=== PATIENT | female | born 1985 | race Caucasian/White ===

== ENCOUNTER 2024-07-01 18:15 | Emergency (ER) | payer OTHER, SELFPAY ==
[2024-07-01 18:16] VITALS: BP 132/67
--- NOTE | 2024-07-01 18:40 | ED.GENMED ---
History of Present Illness
General
Chief Complaint: Flank Pain
Time Seen by Provider: 07/01/24 18:35
History of Present Illness
History of Present Illness:
TIME OF INITIAL ENCOUNTER: 6:40 PM
HPI: Patient presents with 1.5 to 2 weeks of left flank pain/abdominal pain. This was not abrupt in onset. It was gradual in progression. She had dysuria about a week and a half ago and tried Bactrim but this only made her feel better for about a
day. She has an ongoing sensation of discomfort in the left side of the abdomen. She reports history of intussusception about 10 years ago as well.
EXAM:
GENERAL: Well appearing in no distress
HEENT: Moist oral mucosa
CARDIOVASCULAR: No murmurs, normal heart rate, regular rhythm, No chest wall tenderness
PULMONARY: No respiratory distress, breath sounds are clear and equal
ABDOMEN: Soft with no peritoneal signs, no tenderness, elevated BMI
NEUROLOGIC: Excellent strength all extremities, no coordination deficits
PSYCHIATRIC: Appropriate mental status, normal insight and judgement
EXTREMITIES: Nontender, no edema, moves all extremities equally
SKIN: No rash, no lesions
NUMBER AND COMPLEXITY OF PROBLEMS ADDRESSED AT THE ENCOUNTER
� Chronic conditions affecting care: Has had intussusception, colitis
� Acute Exacerbation and/or Progression of Chronic Illness:
� Differential Diagnosis includes: Ureteral stone/colic, UTI, pyelonephritis, intussusception, diverticulitis
AMOUNT AND/OR COMPLEXITY OF DATA TO BE REVIEWED AND ANALYZED
� I performed an independent evaluation of and my interpretation is:
EKG:
CT: CT personally reviewed�no significant acute abnormality
X-rays:
Laboratory Studies: Hemoglobin chronically low, white count normal 7.5, chemistries unremarkable, urinalysis shows no sign of infection, hCG negative
Other:
� Review of other/old records: No old records available for review [facility]
� Clinical information was obtained by an independent historian: I spoke to the father at bedside
� Prescriptions/Medications Considered but not given:
� Further testing considered but not performed:
RISK OF COMPLICATIONS AND/OR MORBIDITY OR MORTALITY OF PATIENT MANAGEMENT
� Social determinants of health affecting care: Lives at home
� Discussion with other providers:
� Escalation of care including admission/observation vs risk of discharge considered: The patient has about 2 weeks of left flank/abdomen pain not improved with Bactrim and no longer has dysuria. Will obtain CT imaging as well.
ANY OTHER UPDATES:
8 PM: Ongoing pain despite Toradol�will give low-dose narcotic analgesia.
8:40 PM: After Dilaudid was given, pain still persists and recurred after briefly helping. However she appears rather comfortable at time of discharge. We talked about the possibly of a abdominal muscle etiology and she wishes to try
cyclobenzaprine.
Phy Exam
Physical Exam
Physical Exam:
See HPI
Course
Orders/Labs/Results
Orders:
Orders
07/01/24 18:47
Ketorolac [Toradol] 15 mg IV NOW STA
07/01/24 18:48
Test Result ONCE
07/01/24 18:52
CT Abd/pel Without Iv Or Oral Urgent
Comment:
Reason For Exam: L flank / abd pain
07/01/24 19:07
Basic Metabolic Panel Urgent
Complete Blood Count/With Diff Urgent
HCG, Urine Qualitative Screen Urgent
Date Specimen was Collected: 07/01/24
Time Specimen was Collected: 19:06
Urinalysis Reflex To Culture Urgent
Date Specimen was Collected: 07/01/24
Time Specimen was Collected: 19:06
07/01/24 19:57
HYDROmorphone [Dilaudid] 0.5 mg IV NOW STA
Ondansetron Injectable [Zofran] 4 mg IV NOW STA
Abnormal Lab Results
07/01/24
19:07
Hgb 9.4 L g/dL
(12.0-16.0)
Hct 31.4 L %
(37.0-47.0)
MCV 67.2 L fL
(81.0-99.0)
MCH 20.1 L pg
(27.0-31.0)
MCHC 29.9 L g/dL
(33.0-37.0)
RDW 17.6 H %
(11.5-14.5)
MPV 10.5 H fL
(7.4-10.4)
Lymphocytes % 15.6 L %
(20.5-51.1)
Glucose 104 H mg/dl
(70-99)
Calcium 10.3 H mg/dl
(8.4-10.2)
07/01/24 19:07
07/01/24 19:07
Vital Signs
Initial and Last Documented VS:
Initial Vital Signs
Temp Pulse BP Pulse Ox
98.3 F 65 132/67 98
07/01/24 18:16 07/01/24 18:16 07/01/24 18:16 07/01/24 18:16
Last Documented Vital Signs
Temp Pulse Resp BP Pulse Ox
98.3 F 60 16 137/77 100
07/01/24 18:16 07/01/24 19:53 07/01/24 19:53 07/01/24 19:53 07/01/24 19:53
*Critical Care Note
Total Time (30-74mins, 75-104mins- exclusive of procedures): Not Applicable
ED Attending Note
-
Portions of this chart may have been created with voice recognition software.� Occasional wrong word or��sound alike� substitutions may have occurred due to the inherent limitations of voice recognition software.
Discharge Plan
Departure
Patient Disposition: Home (Routine Discharge)
Date of Disposition: 07/01/24
Time of Disposition: 20:36
Patient with high blood pressure during this ER visit?: Yes
Discharge Problem:
Abdominal pain
Instructions: Abdominal Pain
Prescriptions:
New
cyclobenzaprine 10 mg tablet
10 mg PO TID PRN (Reason: pain) Qty: 15 0RF
Referrals:
Pam Denney CRNP [Family Provider] -
Activity Restrictions/Additional Instructions:
The cause of your pain is unclear. Your white blood cell count is normal. There is no sign of urinary tract infection/kidney infection based on the urinalysis. You are not . There was no sign on the CAT scan of obstruction, appendicitis,
kidney stones, swollen ureters. CAT scan showed some slightly enlarged lymph nodes on the right side that can be seen with mesenteric adenitis and it also showed a tiny fat only containing umbilical hernia was also seen (this would not be the cause
of your pain is extremely common). Symptoms could be related to abdominal muscle strain. I sent a prescription to your pharmacy for cyclobenzaprine/Flexeril. Return here if worse or other concerns.
Interventions
Interventions:
*Risk Screen - Suicide Last Done: 07/01/24 18:24
*General Assessment Last Done: 07/01/24 18:21
*Neglect/Abuse Screening Last Done: 07/01/24 19:11
ED- Fall Risk Assessment Last Done: 07/01/24 18:55
*ED COVID-19 Vaccine History Last Done: 07/01/24 18:21
FM-Jlilwg-Cgyczeolgn Assessment Last Done: 07/01/24 19:11
ED-Female Genitourinary Assessment Last Done: 07/01/24 19:11
Discharge Date and Time
Print Language: [place]
[2024-07-01 18:55] VITALS: BMI 32.3
[2024-07-01] MEDS: TORADOL 15 MG IV (19:04)
[2024-07-01 19:17] LABS: Urine Albumin Negative (Neg - Trace); Urine Bilirubin Negative (Negative); Urine Character Slightly Cloudy (Clear); Urine Color Yellow; Urine Glucose Negative (Negative); Urine Ketone Negative (Negative); Urine Leukocyte Negative (Negative); Urine Nitrite Negative (Negative); Urine Occult Blood Negative (Negative); Urine Specific Gravity 1.015 (<1.030); Urine Urobilinogen Negative (Neg - 1+)
[2024-07-01 19:19] LABS: % Basophils 0.4 % (0-2); % Eosinophils 1.6 % (0-6); % Immature Granulocytes 0.4 % (0-0.5); % Lymphocytes 15.6 % (20.5-51.1); % Monocytes 7.3 % (1.7-9.3); % Neutrophils 74.7 % (42.2-75.2); Absolute Eosinophils 0.1 10^3/uL (0-0.7); Absolute Lymphocytes 1.2 10^3/uL (1.2-3.4); Absolute Monocytes 0.6 10^3/uL (0.1-0.6); Absolute Neutrophils 5.6 10^3/uL (1.4-6.5); Hematocrit 31.4 % (37.0-47.0); Hemoglobin 9.4 g/dL (12.0-16.0); Mean Corp Hgb Conc. 29.9 g/dL (33.0-37.0); Mean Corpuscular Hgb 20.1 pg (27.0-31.0); Mean Corpuscular Volume 67.2 fL (81.0-99.0); Mean Platelet Volume 10.5 fL (7.4-10.4); Nucleated Red Blood Cells % 0 %; Platelet Count 244 10^3/uL (130-400); Red Blood Cell Count 4.67 10^6/uL (4.20-5.40); Red Cell Dist. Width 17.6 % (11.5-14.5); White Blood Cell Count 7.5 10^3/uL (4.8-10.8)
[2024-07-01 19:21] LABS: HCG, Urine Qualitative Screen Negative
[2024-07-01 19:36] LABS: Blood Urea Nitrogen 11 mg/dl (7-17); Calcium 10.3 mg/dl (8.4-10.2); Carbon Dioxide 25 mmol/L (22-30); Chloride 104 mmol/L (98-107); Estimated Creatinine Clearance 124 ml/min; Glucose 104 mg/dl (70-99); Potassium 4.2 mmol/L (3.5-5.1); Sodium 140 mmol/L (135-145); eGFR > 60.00
[2024-07-01 19:53] VITALS: BP 137/77
[2024-07-01] MEDS: DILAUDID 0.5 MG IV (20:06)
[2024-07-01] MEDS: ZOFRAN 4 MG IV (20:06)
[2024-07-01] MEDS: FLEXERIL 10 MG PO (20:50)
== END 2024-07-01 20:53 | disposition home or self-care (01) ==
LOC: EMR 18:15
PROVIDERS: EMERGENCY PHYSICIAN Emergency Medicine; FAMILY PHYSICIAN Nurse Practitioner Adult Health
DX: R10.9 Unspecified abdominal pain (principal); R30.0 Dysuria; Z88.8 Allergy status to other drugs, medicaments and biological substances
CPT/HCPCS: 99284; 96374; 96375 ×2; 74176; 80048; 81003; 81025; 85025